=== PATIENT | male | born 1965 | race Caucasian/White ===

== ENCOUNTER 2018-02-20 15:15 | Emergency (ER) | payer BC ==
--- NOTE | 2018-02-20 15:32 | EDM.PDOC ---
ED HPI GENERAL MEDICAL PROBLEM - General Chief Complaint: Back Pain or Injury Stated Complaint: BACK,RIGHT SIDE PAIN Time Seen by Provider: 02/20/18 15:15 Source of Information: Reports: Patient, Family, [facility] Records History Limitations: Reports: No Limitations - History of Present Illness INITIAL COMMENTS - FREE TEXT/NARRATIVE: 52 y.o.w.m with H/O Asthma, Chronic back pain, came to the ed with his SO due to acute onset of RUQ abd. pain radiating to/from his back. Pt stated, he is not able to empty his bladder in full and has to go 10 or more time to the bathroom. at night. He denies pain with urination. BP 136/86 Pulse 76 RR 18 Pulse ox 96% on RA Temp 36.6 Onset Date: 02/17/18 Onset Time: 09:00 Duration: Day(s):, Getting Worse Location: Reports: Abdomen, Back Quality: Reports: Ache, Burning, Dull, Pressure Severity: Moderate Improves with: Reports: Rest Worsens with: Reports: Movement Context: Reports: Other (chronic back pain, difficulty to empty his urinary bladder. Abd. pain, former ETOH/Tobacco user.) right abdomen and back Pain Score (Numeric/FACES): 10 - Related Data Allergies Allergy/AdvReac Type Severity Reaction Status Date / Time No Known Allergies Allergy Verified 02/20/18 20:25 Home Meds: Home Meds Levothyroxine [Sythroid] 100 mcg PO DAILY 07/28/16 [History] Metoprolol Succinate [Toprol XL] 1 tab PO DAILY 07/28/16 [History] atorvaSTATin [Lipitor] 20 mg PO BEDTIME 07/28/16 [History] buPROPion [Wellbutrin SR] 100 mg PO BID 07/28/16 [History] Albuterol [Proventil Neb Soln] 2.5 mg .XX Q6HR PRN #1 box 02/20/18 [Rx] traMADol [Ultram] 50 mg PO Q4H PRN #10 tab 02/20/18 [Rx] Social & Family History - Caffeine Use Caffeine Use: Reports: Soda ED ROS GENERAL - Review of Systems Review Of Systems: See Below Constitutional: Reports: No Symptoms HEENT: Reports: No Symptoms Respiratory: Reports: Shortness of Breath, Wheezing Cardiovascular: Reports: No Symptoms Endocrine: Reports: No Symptoms GI/Abdominal: Reports: Abdominal Pain : Reports: Dysuria, Frequency Musculoskeletal: Reports: No Symptoms Skin: Reports: No Symptoms Neurological: Reports: No Symptoms Psychiatric: Reports: No Symptoms Hematologic/Lymphatic: Reports: No Symptoms Immunologic: Reports: No Symptoms ED EXAM, GI/ABD - Physical Exam Exam: See Below Exam Limited By: No Limitations General Appearance: Alert, WD/WN, Moderate Distress Eyes: Bilateral: Normal Appearance Ears: Normal External Exam, Normal Canal Nose: Normal Inspection, Normal Mucosa, No Blood Throat/Mouth: Normal Inspection, Normal Lips, Normal Voice, No Airway Compromise Head: Atraumatic, Normocephalic Neck: Normal Inspection, Supple, Non-Tender, Full Range of Motion Respiratory/Chest: No Accessory Muscle Use, Chest Non-Tender, Decreased Breath Sounds, Wheezing Cardiovascular: Normal Peripheral Pulses, Regular Rate, Rhythm, No Edema, No Gallop, No JVD, No Murmur, No Rub GI/Abdominal Exam: Normal Bowel Sounds, No Mass, Pelvis Stable, Distended, Tender (Male) Exam: Deferred Rectal (Males) Exam: Deferred Back Exam: Normal Inspection, Full Range of Motion Extremities: Normal Inspection, Normal Range of Motion, Non-Tender, No Pedal Edema, Normal Capillary Refill Neurological: Alert, Oriented, CN II-XII Intact, Normal Cognition, Normal Gait, No Motor/Sensory Deficits Psychiatric: Normal Affect, Normal Mood Skin Exam: Warm, Dry, Intact, Normal Color, No Rash Lymphatic: No Adenopathy Course - Vital Signs Text/Narrative:: 52 y.o.w.m with H/O Asthma, Chronic back pain, came to the ed with his SO due to acute onset of RUQ abd. pain radiating to/from his back. Pt stated, he is not able to empty his bladder in full and has to go 10 or more time to the bathroom. at night. He denies pain with urination. BP 136/86 Pulse 76 RR 18 Pulse ox 96% on RA Temp 36.6 PE: WNWD W M with abd, pain Labs: Residual urinary volume 341 cc UDS pos for Opioides Wellbutin, loracepam) Ticyclicx Imaging: CT abd/ Pelvis NAD, Constipation, bilateral atelectasis of lungs Impression: Intermittent/Chronic back pain, Constipation, H/O Asthma, Atelectasis bilateral. Abd. pain, Cause not determined, Urinary retention Tx: Mg citrate, Duoneb, Dilaudid (initially) , Gupta cath. Reexam: Improved Plan: D/C with instructions Last Recorded V/S: Last Vital Signs Temp 36.6 C 02/20/18 15:30 Pulse 87 02/20/18 19:00 Resp 17 02/20/18 19:00 BP 130/76 02/20/18 19:00 Pulse Ox 95 02/20/18 19:00 - Orders/Labs/Meds Orders: Active Orders 24 hr Category Date Time Status Gupta Catheter Insertion [Insert Urinary Catheter] [OM. Care 02/20/18 19:00 Ordered PC] Q24H RT Aerosol Therapy [RC] ASDIRECTED Care 02/20/18 17:26 Active Urinary Catheter Assessment [RC] QSHIFT Care 02/20/18 18:55 Active Abdomen Pelvis w Cont [CT] Stat Exams 02/20/18 16:01 Taken DRUG SCREEN, URINE ALERE [URCHEM] Stat Lab 02/20/18 18:18 Ordered UA W/MICROSCOPIC [URIN] Stat Lab 02/20/18 18:18 Ordered Labs: Laboratory Tests 02/20/18 02/20/18 02/20/18 Range/Units 15:40 15:40 15:40 WBC 7.6 (4.5-12.0) X10-3/uL RBC 5.84 H (4.30-5.75) x10(6)uL Hgb 17.2 H (11.5-15.5) g/dL Hct 51.1 (30.0-51.3) % MCV 87.6 (80-96) fL MCH 29.4 (27.7-33.6) pg MCHC 33.6 (32.2-35.4) g/dL RDW 12.2 (11.5-15.5) % Plt Count 247 (125-369) X10(3)uL MPV 7.9 (7.4-10.4) fL Neut % (Auto) 71.3 (46-82) % Lymph % (Auto) 17.9 (13-37) % Garza % (Auto) 6.3 (4-12) % Eos % (Auto) 3 (1.0-5.0) % Baso % (Auto) 2 (0-2) % Neut # (Auto) 5.4 (1.6-8.3) # Lymph # (Auto) 1.4 (0.6-5.0) # Garza # (Auto) 0.5 (0.0-1.3) # Eos # (Auto) 0.2 (0.0-0.8) # Baso # (Auto) 0.1 (0.0-0.2) # PT 10.0 (8.7-11.1) INR 1.03 (0.89-1.13) Sodium 137 (135-145) mmol/L Potassium 3.8 (3.5-5.3) mmol/L Chloride 103 (100-110) mmol/L Carbon Dioxide 27 (21-32) mmol/L BUN 16 (7-18) mg/dL Creatinine 1.0 (0.70-1.30) mg/dL Est Cr Clr Drug Dosing TNP Estimated GFR (MDRD) > 60 (>60) BUN/Creatinine Ratio 16.0 (9-20) Glucose 107 (80-116) mg/dL Calcium 8.6 (8.6-10.2) mg/dL Total Bilirubin (0.1-1.3) mg/dL Direct Bilirubin (0.10-0.20) mg/dL AST (5-25) IU/L ALT (12-36) U/L Alkaline Phosphatase (56-112) IU/L Total Protein (6.0-8.0) g/dL Albumin (3.5-5.2) g/dL Amylase (25-115) U/L Urine Color (YELLOW) Urine Appearance (CLEAR) Urine pH (5.0-6.5) Ur Specific [place] (1.010-1.025) Urine Protein (NEGATIVE) mg/dL Urine Glucose (UA) (NEGATIVE) mg/dL Urine Ketones (NEGATIVE) mg/dL Urine Occult Blood (NEGATIVE) Urine Nitrite (NEGATIVE) Urine Bilirubin (NEGATIVE) Urine Urobilinogen (NEGATIVE) mg/dL Ur Leukocyte Esterase (NEGATIVE) Urine RBC (0) Urine WBC (0) Ur Squamous Epith Cells (NS,R,O) Urine Bacteria (NS) Urine Opiates Screen (NEGATIVE) Ur Oxycodone Screen (NEGATIVE) Ur Propoxyphene Screen (NEGATIVE) Ur Barbituates Screen (NEGATIVE) Ur Tricyclics Screen (NEGATIVE) Ur Phencyclidine Scrn (NEGATIVE) Ur Amphetamine Screen (NEGATIVE) Urine MDMA Screen (NEGATIVE) U Benzodiazepines Scrn (NEGATIVE) U Cocaine Metab Screen (NEGATIVE) U Marijuana (THC) Screen (NEGATIVE) Ethyl Alcohol (<0.03) % 02/20/18 02/20/18 02/20/18 Range/Units 15:40 15:40 18:18 WBC (4.5-12.0) X10-3/uL RBC (4.30-5.75) x10(6)uL Hgb (11.5-15.5) g/dL Hct (30.0-51.3) % MCV (80-96) fL MCH (27.7-33.6) pg MCHC (32.2-35.4) g/dL RDW (11.5-15.5) % Plt Count (125-369) X10(3)uL MPV (7.4-10.4) fL Neut % (Auto) (46-82) % Lymph % (Auto) (13-37) % Garza % (Auto) (4-12) % Eos % (Auto) (1.0-5.0) % Baso % (Auto) (0-2) % Neut # (Auto) (1.6-8.3) # Lymph # (Auto) (0.6-5.0) # Garza # (Auto) (0.0-1.3) # Eos # (Auto) (0.0-0.8) # Baso # (Auto) (0.0-0.2) # PT (8.7-11.1) INR (0.89-1.13) Sodium (135-145) mmol/L Potassium (3.5-5.3) mmol/L Chloride (100-110) mmol/L Carbon Dioxide (21-32) mmol/L BUN (7-18) mg/dL Creatinine (0.70-1.30) mg/dL Est Cr Clr Drug Dosing Estimated GFR (MDRD) (>60) BUN/Creatinine Ratio (9-20) Glucose (80-116) mg/dL Calcium (8.6-10.2) mg/dL Total Bilirubin 0.8 (0.1-1.3) mg/dL Direct Bilirubin 0.14 (0.10-0.20) mg/dL AST 23 (5-25) IU/L ALT 48 H (12-36) U/L Alkaline Phosphatase 95 (56-112) IU/L Total Protein 7.7 (6.0-8.0) g/dL Albumin 3.6 (3.5-5.2) g/dL Amylase 35 (25-115) U/L Urine Color (YELLOW) Urine Appearance (CLEAR) Urine pH (5.0-6.5) Ur Specific [place] (1.010-1.025) Urine Protein (NEGATIVE) mg/dL Urine Glucose (UA) (NEGATIVE) mg/dL Urine Ketones (NEGATIVE) mg/dL Urine Occult Blood (NEGATIVE) Urine Nitrite (NEGATIVE) Urine Bilirubin (NEGATIVE) Urine Urobilinogen (NEGATIVE) mg/dL Ur Leukocyte Esterase (NEGATIVE) Urine RBC (0) Urine WBC (0) Ur Squamous Epith Cells (NS,R,O) Urine Bacteria (NS) Urine Opiates Screen Positive H (NEGATIVE) Ur Oxycodone Screen Negative (NEGATIVE) Ur Propoxyphene Screen Negative (NEGATIVE) Ur Barbituates Screen Negative (NEGATIVE) Ur Tricyclics Screen Positive H (NEGATIVE) Ur Phencyclidine Scrn Negative (NEGATIVE) Ur Amphetamine Screen Negative (NEGATIVE) Urine MDMA Screen Negative (NEGATIVE) U Benzodiazepines Scrn Negative (NEGATIVE) U Cocaine Metab Screen Negative (NEGATIVE) U Marijuana (THC) Screen Negative (NEGATIVE) Ethyl Alcohol < 0.03 (<0.03) % 02/20/18 Range/Units 18:18 WBC (4.5-12.0) X10-3/uL RBC (4.30-5.75) x10(6)uL Hgb (11.5-15.5) g/dL Hct (30.0-51.3) % MCV (80-96) fL MCH (27.7-33.6) pg MCHC (32.2-35.4) g/dL RDW (11.5-15.5) % Plt Count (125-369) X10(3)uL MPV (7.4-10.4) fL Neut % (Auto) (46-82) % Lymph % (Auto) (13-37) % Garza % (Auto) (4-12) % Eos % (Auto) (1.0-5.0) % Baso % (Auto) (0-2) % Neut # (Auto) (1.6-8.3) # Lymph # (Auto) (0.6-5.0) # Garza # (Auto) (0.0-1.3) # Eos # (Auto) (0.0-0.8) # Baso # (Auto) (0.0-0.2) # PT (8.7-11.1) INR (0.89-1.13) Sodium (135-145) mmol/L Potassium (3.5-5.3) mmol/L Chloride (100-110) mmol/L Carbon Dioxide (21-32) mmol/L BUN (7-18) mg/dL Creatinine (0.70-1.30) mg/dL Est Cr Clr Drug Dosing Estimated GFR (MDRD) (>60) BUN/Creatinine Ratio (9-20) Glucose (80-116) mg/dL Calcium (8.6-10.2) mg/dL Total Bilirubin (0.1-1.3) mg/dL Direct Bilirubin (0.10-0.20) mg/dL AST (5-25) IU/L ALT (12-36) U/L Alkaline Phosphatase (56-112) IU/L Total Protein (6.0-8.0) g/dL Albumin (3.5-5.2) g/dL Amylase (25-115) U/L Urine Color Yellow (YELLOW) Urine Appearance Clear (CLEAR) Urine pH 5.0 (5.0-6.5) Ur Specific [place] 1.010 (1.010-1.025) Urine Protein Negative (NEGATIVE) mg/dL Urine Glucose (UA) Normal (NEGATIVE) mg/dL Urine Ketones Negative (NEGATIVE) mg/dL Urine Occult Blood Negative (NEGATIVE) Urine Nitrite Negative (NEGATIVE) Urine Bilirubin Negative (NEGATIVE) Urine Urobilinogen Normal (NEGATIVE) mg/dL Ur Leukocyte Esterase Negative (NEGATIVE) Urine RBC 0-5 (0) Urine WBC 0-5 (0) Ur Squamous Epith Cells Rare (NS,R,O) Urine Bacteria Few H (NS) Urine Opiates Screen (NEGATIVE) Ur Oxycodone Screen (NEGATIVE) Ur Propoxyphene Screen (NEGATIVE) Ur Barbituates Screen (NEGATIVE) Ur Tricyclics Screen (NEGATIVE) Ur Phencyclidine Scrn (NEGATIVE) Ur Amphetamine Screen (NEGATIVE) Urine MDMA Screen (NEGATIVE) U Benzodiazepines Scrn (NEGATIVE) U Cocaine Metab Screen (NEGATIVE) U Marijuana (THC) Screen (NEGATIVE) Ethyl Alcohol (<0.03) % Meds: Medications Discontinued Medications Generic Name Dose Route Start Last Admin Trade Name Freq PRN Reason Stop Dose Admin Albuterol/Ipratropium 3 ml 02/20/18 17:26 02/20/18 17:41 Duoneb 3.0-0.5 Mg/3 Ml NEB 02/20/18 17:27 3 ml ONETIME ONE Administration Diatrizoate Meglum/Diatrizoate Sod 30 ml 02/20/18 16:30 02/20/18 16:25 Gastrografin 37% PO 30 ml . DIRECTED OJ Administration Hydromorphone HCl 1 mg 02/20/18 15:35 02/20/18 16:11 Dilaudid IVPUSH 02/20/18 15:36 1 mg ONETIME ONE Administration Sodium Chloride 1,000 mls @ 125 mls/hr 02/20/18 15:45 02/20/18 16:10 Normal Saline IV 125 mls/hr ASDIRECTED OJ Administration Iopamidol 75 ml 02/20/18 16:03 02/20/18 16:25 Isovue-370 (76%) IV 02/20/18 16:04 75 ml ONETIME ONE Administration Ondansetron HCl 8 mg 02/20/18 15:37 02/20/18 16:10 Zofran IVPUSH 02/20/18 15:38 8 mg ONETIME ONE Administration Tramadol HCl 100 mg 02/20/18 19:12 02/20/18 19:36 Ultram PO 02/20/18 19:13 100 mg ONETIME ONE Administration Departure - Departure Time of Disposition: 19:03 Disposition: Home, Self-Care 01 Condition: Good Clinical Impression: Urinary retention, Atelectasis Constipation Qualifiers: Constipation type: other constipation type Qualified Code(s): K59.09 - Other constipation Back pain Qualifiers: Back pain location: thoracic back pain Back pain laterality: right - Discharge Information Prescriptions: Albuterol [Proventil Neb Soln] 2.5 mg .XX Q6HR PRN #1 box PRN Reason: asthma, sob traMADol [Ultram] 50 mg PO Q4H PRN #10 tab PRN Reason: severe pain Instructions: Indwelling Urinary Catheter Care, Adult, Constipation, Adult Referrals: PCP,Not In Area [Primary Care Provider] - Forms: ED Department Discharge Additional Instructions: Please f/u with your urologist a.s.a.p, please use albuterol inhalers as recommended, please take Mg citrate as recommended, oatmeal daily. Please come back if your symptoms get worse acutely - My Orders Last 24 Hours: My Active Orders 02/20/18 16:01 Abdomen Pelvis w Cont [CT] Stat 02/20/18 17:26 RT Aerosol Therapy [RC] ASDIRECTED 02/20/18 18:18 DRUG SCREEN, URINE ALERE [URCHEM] Stat UA W/MICROSCOPIC [URIN] Stat 02/20/18 18:55 Urinary Catheter Assessment [RC] QSHIFT 02/20/18 19:00 Gupta Catheter Insertion [Insert Urinary Catheter] [OM.PC] Q24H - Assessment/Plan Last 24 Hours: My Active Orders 02/20/18 16:01 Abdomen Pelvis w Cont [CT] Stat 02/20/18 17:26 RT Aerosol Therapy [RC] ASDIRECTED 02/20/18 18:18 DRUG SCREEN, URINE ALERE [URCHEM] Stat UA W/MICROSCOPIC [URIN] Stat 02/20/18 18:55 Urinary Catheter Assessment [RC] QSHIFT 02/20/18 19:00 Gupta Catheter Insertion [Insert Urinary Catheter] [OM.PC] Q24H
[2018-02-20] MEDS ORDERED: HYDROmorphone 2 MG/ML SDV IVPUSH ONE (15:35)
[2018-02-20] MEDS ORDERED: Ondansetron 4 MG/2 ML SDV IVPUSH ONE (15:37)
[2018-02-20] MEDS ORDERED: Sodium Chloride 0.9% 1,000 ML IV SCH (15:45)
[2018-02-20] MEDS ORDERED: Iopamidol 755 Mg/ML 75 ML Bottle IV ONE (16:03)
[2018-02-20] MEDS ORDERED: Diatrizoate Meglumine/Diatrizoate Sodium 37% 30 ML Bottle PO SCH (16:30)
[2018-02-20] MEDS ORDERED: Albuterol/Ipratropium 3.0-0.5 MG/3 ML Neb Soln NEB ONE (17:26)
[2018-02-20] MEDS ORDERED: traMADol 50 MG Tab PO ONE (19:12)
== END 2018-02-20 19:53 | disposition home or self-care (01) ==
LOC: FB.ED 15:15
DX: R33.9 Retention of urine, unspecified (principal); K59.00 Constipation, unspecified; J98.11 Atelectasis; K59.09 Other constipation; M54.6 Pain in thoracic spine; Z79.899 Other long term (current) drug therapy
CPT/HCPCS: 36415; 51702; 51798; 74177; 80048; 80076; 80305; 81001; 82150; 85025; 85610; 94640; 96361; 96374; 96375; 99284; A9270; G0480; J1170; J2405; J7030; J7620; Q9963; Q9967

== ENCOUNTER 2018-02-24 19:49 | Emergency (ER) | payer BC ==
[2018-02-24] MEDS ORDERED: Ciprofloxacin 500 MG Tab PO ONE (21:03)
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
== END 2018-02-24 21:15 | disposition home or self-care (01) ==
LOC: FB.ED 19:49
DX: N30.01 Acute cystitis with hematuria (principal); I10 Essential (primary) hypertension; J45.909 Unspecified asthma, uncomplicated; E03.9 Hypothyroidism, unspecified; Z79.899 Other long term (current) drug therapy
CPT/HCPCS: 51798; 81001; 87086; 99283; A9270

== ENCOUNTER 2023-10-21 22:52 | Emergency (ER) | payer BC, OTHER ==
[2023-10-21] MEDS: Albuterol/Ipratropium 3.0-0.5 MG/3 ML Neb Soln NEB ONE ×2 (23:21→23:57)
[2023-10-21] MEDS: predniSONE 20 MG Tab PO ONE (23:40)
== END 2023-10-22 00:34 | disposition home or self-care (01) ==
LOC: FB.ED 22:52
DX: J45.41 Moderate persistent asthma with (acute) exacerbation (principal); I10 Essential (primary) hypertension; E03.9 Hypothyroidism, unspecified; Z79.899 Other long term (current) drug therapy
CPT/HCPCS: 71045; 93005; 99283; J7512; J7620

== ENCOUNTER 2024-01-16 19:33 | Emergency (ER) | payer BC ==
[2024-01-16] MEDS: Ketorolac 30 MG/ML SDV IVPUSH ONE (20:00)
[2024-01-16 20:09] LABS: BASOPHILS ABSOLUTE AUTO 0.1 x10-3/uL (0.0-0.3); BASOPHILS PERCENT AUTO 0.8 % (0.3-3.8); EOSINOPHILS ABSOLUTE AUTO 0.1 x10-3/uL (0.0-0.6); EOSINOPHILS PERCENT AUTO 1.5 % (0.1-6.8); HEMATOCRIT 46.7 % (38.3-50.1); LYMPHOCYTES ABSOLUTE AUTO 2.2 x10-3/uL (0.5-4.5); LYMPHOCYTES PERCENT AUTO 24.8 % (15.8-45.3); MEAN CORPUSCULAR HEMOGLOBIN 29.8 pg (27.0-33.3); MEAN CORPUSCULAR HGB CONC 34.2 g/dL (28.7-35.3); MEAN PLATELET VOLUME 7.5 fL (6.7-11.0); MONOCYTES ABSOLUTE AUTO 0.8 x10-3/uL (0.0-1.2); MONOCYTES PERCENT AUTO 8.8 % (5.5-15.2); NEUTROPHILS ABSOLUTE AUTO 5.6 x10-3/uL (1.7-6.9); NEUTROPHILS PERCENT AUTO 64.1 % (40.3-71.8); PLATELET COUNT,PLT 309 x10(3)uL (117-477); RED BLOOD CELL COUNT 5.36 x10(6)uL (3.90-5.90); RED CELL DISTRIBUTION WIDTH 13.1 % (12.4-15.0); WHITE BLOOD CELL COUNT,WBC 8.8 x10-3/uL (3.2-10.1)
[2024-01-16 20:14] LABS: BLOOD UREA NITROGEN,BUN 11 mg/dL (7-18); CALCIUM 8.7 mg/dL (8.6-10.2); CARBON DIOXIDE,CO2 29 mmol/L (21-32); CHLORIDE,CL 105 mmol/L (100-110); ESTIMATED GFR 87 mL/min (>60); GLUCOSE RANDOM 65 mg/dL (80-116); SODIUM,NA 141 mmol/L (135-145)
[2024-01-16 20:18] LABS: ALANINE AMINOTRANSFERASE,ALT 55 U/L (12-36); ALBUMIN 3.5 g/dL (3.5-5.2); ALKALINE PHOSPHATASE 97 IU/L (56-112); ASPARTATE AMNIOTRANSFERASE,AST 26 IU/L (5-25); BILIRUBIN TOTAL 0.8 mg/dL (0.1-1.3); PROTEIN TOTAL,TP 7.2 g/dL (6.0-8.0)
[2024-01-16 20:23] LABS: BILIRUBIN,URINE NEGATIVE (NEGATIVE); GLUCOSE,URINE NORMAL (NORMAL); KETONES,URINE NEGATIVE (NEGATIVE); LEUKOCYTE ESTERASE,URINE NEGATIVE (NEGATIVE); NITRITE,URINE NEGATIVE (NEGATIVE); OCCULT BLOOD,URINE NEGATIVE (NEGATIVE); PROTEIN,URINE NEGATIVE (NEGATIVE); UROBILINOGEN,URINE NORMAL (NEGATIVE)
[2024-01-16 20:25] LABS: APPEARANCE,URINE CLEAR (CLEAR); COLOR,URINE YELLOW (YELLOW); RBC,URINE 0-5 (0-5); WBC,URINE 0-5 (0-5)
[2024-01-16 20:26] LABS: BACTERIA,URINE RARE (NS); SQUAMOUS EPITHELIAL CELLS,UR OCCASIONAL (NS,R,O)
== END 2024-01-16 21:20 | disposition home or self-care (01) ==
LOC: FB.ED 19:33
DX: M54.16 Radiculopathy, lumbar region (principal); I10 Essential (primary) hypertension; J45.909 Unspecified asthma, uncomplicated; Z79.899 Other long term (current) drug therapy
CPT/HCPCS: 72131; 80053; 81001; 85025; 96374; 99284; J1885

== ENCOUNTER 2025-07-24 10:21 | Emergency (ER) | payer OTHER, BC ==
[2025-07-24] MEDS: Ketorolac 30 MG/ML SDV IM ONE (10:59)
[2025-07-24] MEDS: Diphtheria/Tetanus Toxoids,Adult (Td) 0.5 ML SDV IM ONE (11:05)
[2025-07-24] MEDS: Diphtheria,Pertussis(Acell),Tetanus Vaccine 0.5 ML Syringe IM ONE (11:13)
== END 2025-07-24 12:58 ==
LOC: FB.ED 10:21
DX: S62.611B Displaced fracture of proximal phalanx of left index finger, initial encounter for open fracture (principal); S62.631A Displaced fracture of distal phalanx of left index finger, initial encounter for closed fracture; I10 Essential (primary) hypertension; J45.909 Unspecified asthma, uncomplicated; E03.9 Hypothyroidism, unspecified; Z79.890 Hormone replacement therapy; Z79.899 Other long term (current) drug therapy; Z79.51 Long term (current) use of inhaled steroids; Z90.49 Acquired absence of other specified parts of digestive tract; W31.89XA Contact with other specified machinery, initial encounter
CPT/HCPCS: 73130; 90471; 90715; 96372; 99284; J1885; J2003

== ENCOUNTER 2025-07-24 14:36 | Emergency (ER) | payer OTHER, BC ==
[2025-07-24] MEDS ORDERED: Acetaminophen/HYDROcodone 325-5 MG Tab PO ONE (14:37)
== END 2025-07-24 16:50 | disposition home or self-care (01) ==
LOC: FB.ED 14:36
DX: S62.631B Displaced fracture of distal phalanx of left index finger, initial encounter for open fracture (principal); S62.611B Displaced fracture of proximal phalanx of left index finger, initial encounter for open fracture; I10 Essential (primary) hypertension; J45.909 Unspecified asthma, uncomplicated; E03.9 Hypothyroidism, unspecified; Z90.49 Acquired absence of other specified parts of digestive tract; Z79.890 Hormone replacement therapy; Z79.899 Other long term (current) drug therapy; X58.XXXA Exposure to other specified factors, initial encounter
CPT/HCPCS: 12004; 26755; 96372; 99283-25; A9270-GY; J0696